=== PATIENT | female | born 1985 | race Asian ===

== ENCOUNTER 2019-06-08 04:01 | Inpatient (IN) ==
[2019-06-08] MEDS ORDERED: OXYTOCIN 30 UNITS/500 ML BAG IV PRN ×2 (04:07→05:12)
[2019-06-08] MEDS ORDERED: LACTATED RINGER'S 1,000 ML IV PRN (04:07)
[2019-06-08] MEDS ORDERED: PENICILLIN G POTASSIUM 6 MU in DEXTROSE 5% 250 ML IV STA (04:10)
[2019-06-08] MEDS ORDERED: PENICILLIN G POTASSIUM 3 MU in DEXTROSE 5% 100 ML IV PRN (04:10)
[2019-06-08] MEDS ORDERED: OXYTOCIN 30 UNITS/500ML NSS ONE (04:15)
--- NOTE | 2019-06-08 04:39 | Delivery Summary ---
Vaginal Delivery Summary Date of Service June 08, 2019 Spontaneous vaginal delivery patient arrived to labor and delivery unannounced and was 7 cm but rapidly progressed to fully dilated she then pushed over an intact perineum baby in occiput anterior position baby was delivered with gentle traction no excessive force live vigorous cord clamped and cut cord gases obtained cord blood obtained placenta removed with gentle traction IV Pitocin then started there was no tearing estimate blood loss 150 mL that should be noted there was no group B strep status is the patient is not been seen in 4 weeks for care
[2019-06-08 05:01] LABS: Hematocrit (blood only) 38.4 % (37-47); Hemoglobin 12.9 g/dL (12.0-16.0); Mean Corpuscular Hemoglobin 33.3 pg (25-34); Mean Corpuscular Volume 99.2 fL (80-100); Mean Platelet Volume 9.7 fL (7.4-10.4); Platelet Count 145 K/uL (130-400); RDW Coefficient of Variation 13.4 % (11.5-14.5); RDW Standard Deviation 48.2 fL (36.4-46.3); Red Blood Count 3.87 M/uL (4.2-5.4); White Blood Count 9.43 K/uL (4.8-10.8)
[2019-06-08 05:05] LABS: Base Excess Cord Arterial Bld -2.3 mEq/L (-9-1.8); CO2 Cord Arterial Blood 50 mmHg (39.1-73.5); HCO3 Cord Arterial Blood 24 mmol/L (19.7-28.5); Oxygen Sat Cord Arterial Blood < 60.0 % (<60); PO2 Cord Arterial Blood 18.1 % (4.1-31.7); pH Cord Arterial Blood 7.31 (7.1-7.38)
[2019-06-08 05:06] LABS: Cord Venous Blood HCO3 24 mmol/L (18.4-26.8); Cord Venous Blood PCO2 43 mmHg (30.4-57.2); Cord Venous Blood PO2 39 mmHg (14.1-43.3); Cord Venous Blood pH 7.37 (7.20-7.44)
[2019-06-08 05:08] LABS: Mean Corpuscular Hgb Conc 33.6 g/dL (32-36)
[2019-06-08] MEDS ORDERED: BENZOCAINE 20% AER SPR 82.5 GM CAN EXT PRN (05:12)
[2019-06-08] MEDS ORDERED: ACETAMINOPHEN 325 MG TAB PO PRN (05:12)
[2019-06-08] MEDS ORDERED: DIPHTHERIA/TETANUS/PERTUSSIS 0.5 ML SYR/VIAL IM ONE (05:12)
[2019-06-08] MEDS ORDERED: LACTATED RINGER'S 1,000 ML IV SCH (05:12)
[2019-06-08] MEDS ORDERED: OXYCODONE/ACETAMINOPHEN 5mg/325mg TAB PO PRN (05:12)
[2019-06-08] MEDS ORDERED: SUPERCREAM 0.870% 15 GM JAR EXT PRN (05:12)
[2019-06-08] MEDS ORDERED: BISACODYL 10 MG SUPP PR PRN (05:12)
[2019-06-08] MEDS ORDERED: IBUPROFEN 600 MG TAB PO PRN (05:12)
[2019-06-08] MEDS ORDERED: HYDROCORTISONE ACETATE 25 MG SUPP PR PRN (05:12)
[2019-06-08] MEDS: DOCUSATE SODIUM 100 MG CAP PO SCH ×2 (08:43→19:59)
[2019-06-08] MEDS: PRENATAL VITAMIN 1 TAB PO SCH (08:43)
[2019-06-08] MEDS ORDERED: NON-FORMULARY MEDICATION (Prenat.Vits,Cal,Min-Iron-Folic 1 TAB) PO SCH (09:00)
[2019-06-08 09:22] LABS: Hepatitis B Surface Antigen Neg (Neg); Rubella IgG Antibody Immune (Immune)
--- NOTE | 2019-06-09 06:24 | Obstetrical Progress Note ---
Date of Service June 09, 2019 Assessment & Plan (1) Status post vaginal delivery: Si is a 34 yo on PPD 1 after at 39w. - GBS pending, Blood Type O+, Rubella immune -Vitals reviewed and WNL (Tmax 36.8) -patient was a transfer of care from [place] at 33 weeks; there is some degree of a language barrier -did not have tdap during ; will offer today -patient is doing clinically well encourage ambulation, provide analgesia as needed, monitor lochia. - After discharge will have [address] Horne. Supervising Physician Co-Signing Physician Notes I have reviewed the resident's note and examined the patient myself, and agree with the note above. Subjective Ambulation: has not yet ambulated Voiding: no voiding problems Passing Gas:: Yes Diet Tolerance:: regular diet Lochia:: moderate Feeding Type:: breast feeding Review of Systems Constitutional: no fever, no chills and no sweats Eyes: no worsening vision Respiratory: no cough and no dyspnea Cardiovascular: no chest pain, no palpitations, no edema and no calf pain Gastrointestinal: no nausea and no vomiting Genitourinary: no dysuria and no urinary frequency Neurologic: no headache(s) Physical Exam Constitutional: WD/WN, vitals as above no acute distress Respiratory: normal respiratory effort, lungs clear to auscultation does not use accessory muscles Auscultation: no crackles, no rales, no rhonchi, no wheezes and no pleural rub Cardiovascular: Rate/Rhythm: regular rate and regular rhythm Heart Sounds: normal S1 and normal S2; no gallop, no murmur and no cardiac rub Extremities: no calf tenderness and no pedal edema Gastrointestinal (Abdomen): Inspection/Auscultation: normal bowel sounds; abdomen not distended Percussion/Palpation: abdomen soft Genitourinary: Uterus: fundus firm, palpable 2 cm below the umbilicus Results & Data Vital Signs (Past 12 Hours) Vital Signs Temp Pulse Resp BP 06/09/19 03:25 36.4 C L 76 18 93/59 L 06/08/19 23:20 36.6 C 86 18 102/69 06/08/19 19:15 36.6 C 88 18 95/60 L Resident Activity Tracking Resident Involvement: Resident Care Provided Care Provided: OB Delivery
[2019-06-09 06:38] LABS: Hematocrit (blood only) 32.4 % (37-47); Hemoglobin 11.1 g/dL (12.0-16.0); Mean Corpuscular Hemoglobin 34.3 pg (25-34); Mean Corpuscular Hgb Conc 34.3 g/dL (32-36); Mean Platelet Volume 8.9 fL (7.4-10.4); Platelet Count 162 K/uL (130-400); RDW Coefficient of Variation 13.7 % (11.5-14.5); RDW Standard Deviation 49.4 fL (36.4-46.3); Red Blood Count 3.24 M/uL (4.2-5.4); White Blood Count 9.88 K/uL (4.8-10.8)
[2019-06-09] MEDS: PRENATAL VITAMIN 1 TAB PO SCH (08:54)
[2019-06-09] MEDS: DOCUSATE SODIUM 100 MG CAP PO SCH ×2 (08:54→21:05)
[2019-06-09 11:09] VITALS: O2SAT 97
[2019-06-09] MEDS ORDERED: BISACODYL 5 MG TABEC PO SCH (20:00)
[2019-06-09 20:20] VITALS: TEMP 98.1
--- NOTE | 2019-06-10 06:09 | Obstetrical Progress Note ---
Date of Service June 10, 2019 Assessment & Plan (1) Status post vaginal delivery: Si is a 34 yo on PPD 2 after at 39w. - GBS neg, Blood Type O+, Rubella immune -Vitals reviewed and WNL (Tmax 36.8) -patient was a transfer of care from [place] at 33 weeks; there is some degree of a language barrier -did not have tdap during ; order placed -patient is doing clinically well discharge instructions reviewed - After discharge will have [address] Horne. Supervising Physician Co-Signing Physician Notes Resident Physician Supervision Note: I interviewed and examined the patient. Discussed with Dr. Alvarado and agree with findings and plan as documented in the note. Any exceptions or clarifications are listed here: [None] Documented By: Lisa Anderson MD, FACOG Subjective Ambulation: without difficulty Voiding: no voiding problems Passing Gas:: Yes Diet Tolerance:: regular diet Lochia:: mild Feeding Type:: breast feeding Review of Systems Constitutional: no fever, no chills and no sweats Eyes: no worsening vision Respiratory: no cough and no dyspnea Cardiovascular: no chest pain, no palpitations, no edema and no calf pain Gastrointestinal: no nausea and no vomiting Genitourinary: no dysuria and no urinary frequency Neurologic: no headache(s) Physical Exam Constitutional: WD/WN, vitals as above no acute distress Respiratory: normal respiratory effort, lungs clear to auscultation does not use accessory muscles Auscultation: no crackles, no rales, no rhonchi, no wheezes and no pleural rub Cardiovascular: Rate/Rhythm: regular rate and regular rhythm Heart Sounds: normal S1 and normal S2; no gallop, no murmur and no cardiac rub Extremities: no calf tenderness and no pedal edema Gastrointestinal (Abdomen): Inspection/Auscultation: normal bowel sounds; abdomen not distended Percussion/Palpation: abdomen soft Genitourinary: Uterus: fundus firm, palpable 2 cm below the umbilicus Results & Data Vital Signs (Past 12 Hours) Vital Signs Temp Pulse Resp BP 06/09/19 20:00 36.7 C 80 16 88/57 L Resident Activity Tracking Resident Involvement: Resident Care Provided Care Provided: OB Delivery
[2019-06-10 07:36] LABS: Hematocrit (blood only) 34.5 % (37-47); Hemoglobin 11.5 g/dL (12.0-16.0)
[2019-06-10 07:59] VITALS: PULSE 75
[2019-06-10 09:05] VITALS: BP 90/51
[2019-06-10] MEDS: PRENATAL VITAMIN 1 TAB PO SCH (09:53)
[2019-06-10] MEDS: DOCUSATE SODIUM 100 MG CAP PO SCH (09:53)
== END 2019-06-10 12:30 | disposition home or self-care (01) | DRG 807 ==
LOC: OPB 04:01 → 4S1 04:03 → 4S2 07:43